=== PATIENT | male | born 1995 | race Caucasian/White ===

== ENCOUNTER 2019-06-15 | Emergency (ER) | payer OTHER ==
[~2019-06-15] MED LIST: AUGMENTIN875TAB PO; BACTRIM DS1 TAB PO; KEFLEX500 MG PO
[2019-06-15] MEDS ORDERED: AMOXICILLIN500 MG PO (16:23)
[2019-06-15] MEDS ORDERED: ULTRAM50 M1 PO (16:23)
== END 2019-06-15 16:49 | disposition home or self-care (01) | DRG 605 ==
PROC: 0HQEXZZ Repair Left Lower Arm Skin, External Approach (ICD-10-PCS; principal; 2019-06-15)
DX: S51.812A Laceration without foreign body of left forearm, initial encounter (principal); V58.5XXA Driver of pick-up truck or van injured in noncollision transport accident in traffic accident, initial encounter